=== PATIENT | female | born 1945 | race Caucasian/White ===

== ENCOUNTER 2016-05-27 12:21 | Emergency (ER) | payer MEDICARE ==
[2016-05-27 13:24] LABS: BASOPHIL# 0.1 X 10^3uL (0.0-0.1); BASOPHILS 0.7 % (0.0-2.0); EOSINOPHILS 3.4 % (0.0-6.0); EOSINOPHILS# 0.3 X 10^3uL (0.0-0.4); HEMATOCRIT 38.3 % (36.0-48.0); HEMOGLOBIN 13.2 g/dL (12.0-16.0); LYMPHOCYTES 18.9 % (20.0-40.0); LYMPHOCYTES# 1.5 X 10^3uL (0.8-3.8); MEAN CELL VOLUME 91.2 fL (80.0-100.0); MEAN CORPUS. HGB CONCENTRATION 34.6 g/dL (32.0-36.0); MEAN CORPUSCULAR HEMOGLOBIN 31.5 pg (29.0-35.0); MEAN PLATELET VOLUME 7.4 fL (7.4-10.4); MONOCYTES 6.1 % (2.0-10.0); MONOCYTES# 0.5 X 10^3uL (0.2-1.0); NEUTROPHILS 70.9 % (54.0-75.0); NEUTROPHILS# 5.3 X 10^3uL (2.6-6.7); PLATELET COUNT 328 X 10^3uL (130-440); RED CELL DISTRIBUTION WIDTH 13.1 % (11.5-14.5); WHITE BLOOD COUNT 7.7 X 10^3uL (3.9-10.7)
[2016-05-27 13:38] LABS: TROPONIN I < 0.012 ng/mL (0.00-0.034)
--- NOTE | 2016-05-27 14:13 | ER PHYSICIAN DOCUMENTATION ---
Physician Documentation [facility] Name:Lin Senior Age:71 yrs Sex:Female :1945 Arrival Date:05/27/2016 Time:12:21 Bed4 Private MD:Wilbert Abarca ED, Chris Disposition: 05/27 14:01 Critical Care: not applicable. cd 14:20 Chart complete. cd Disposition: 05/27/16 14:02 Discharged to Home/Self Care. Impression: Chest Wall Strain. - Condition is Good. - Discharge Instructions: CHEST WALL STRAIN. - Prescriptions for Robaxin 500 mg Oral - take 1 tablet by ORAL route every 6 hours As needed; 40 tablet. - Medical Reconciliation form form. - Follow up: Wilbert Abarca MD; When: 1 week; Reason: Recheck today's complaints, Continuance of care. - Problem is an ongoing problem. - Symptoms are unchanged. HPI: 12:25 This 71 yrs old Female presents to ER via Private Vehicle with complaints of cd pain in chest wall, chronic...causing SOB. 12:25 The patient has shortness of breath with light activity, that occurred at home, and the cd patient has a history of Lung Cancer, treated and in remission. Also has a hx of Serratus Muscle strain and scarring from breast implants. PT has been working with her. She states she now has CARDENAS due to the pain in her chest wall. She denies anterior substernal chest pain, cough, fever, chills, sputum production or hemoptysis.. Onset: The symptom(s)/episode began/occurred acutely, yesterday. Duration: The symptoms are continuous. Associated signs and symptoms: Pertinent positives: chest pain, Pertinent negatives: productive cough, diaphoresis, dizziness, fever, hemoptysis, nausea, vomiting. Severity of symptoms: At their worst the symptoms were moderate in the emergency department the symptoms have improved mildly. Risk Factors The risk factors for pulmonary embolism include: This patient has a history of a prior pulmonary embolism. The patient has experienced similar episodes in the past. Historical: - Allergies: cyclobenzaprine HCl; Tetanus-Diphtheria Toxoids-Td; - Home Meds: 1. Neurontin Oral 2. Combivent Inhl 3. Ventolin HFA inhl Nebulizer 4. Azithromycin Oral 5. Acyclovir Oral 6. Tessalon Perles Oral 7. bivespi 8. meloxicam oral 9. DuoNeb Inhl 10. Zoloft Oral 11. Methocarbamol Oral 12. Trazodone Oral - PMHx: pseudophakia; breast CA; hypoxia; chronic chest wall pain; PANCREATITIS; DIVERTICULITIS; RAD; ASTHMA; ANXIETY; DEPRESSION; HIGH CHOLESTEROL; PE; SBO; RSV; - PSHx: CHOLECYSECTOMY; SBO repair; RIght upper and middle lobes removed; - Tetanus: allergy. - Ebola Screening: : Patient negative for fever greater than or equal to 101.5 degrees Fahrenheit, and additional compatible Ebola Virus Disease symptoms. Patient denies exposure to infectious person. Patient denies travel to an Ebola-affected area in the 21 days before illness onset. No symptoms or risks identified at this time. . - Immunization history: Pneumococcal vaccine is up to date, Flu Vaccine < 1 year. - Social history: Smoking status: Patient states former smoker of tobacco. ROS: 13:06 ENT: Negative for injury, pain, epistaxis and discharge. cd Neck: Negative for injury, pain, stiffness and swelling. Back: Negative for injury, pain or muscle spasms. MS/Extremity: Negative for injury, deformity, edema, calf tenderness, pain or coldness. Skin: Negative for injury, rash, itching and discoloration. 13:06 Neuro: Negative for headache, weakness, numbness, tingling, and seizure. cd 13:06 Constitutional: Negative for chills, fever, poor PO intake. 13:06 Cardiovascular: Positive for chest pain, with movement, Negative for edema, orthopnea, palpitations, paroxysmal nocturnal dyspnea. 13:06 Respiratory: Positive for dyspnea on exertion, Negative for cough, hemoptysis, orthopnea, shortness of breath, sputum production, wheezing. 13:06 Abdomen/GI: Negative for abdominal pain, nausea, vomiting. 13:06 All other systems are negative. Exam: Head/Face: Normocephalic, atraumatic. Eyes: Pupils equal round and reactive to light, extra-ocular motions intact. Lids and lashes normal. Conjunctiva and sclera are non-icteric and not injected. Cornea within normal limits. Periorbital areas with no swelling, redness, or edema. ENT: Nares patent. No nasal discharge, no septal abnormalities noted. Tympanic membranes are normal and external auditory canals are clear. Oropharynx with no redness, swelling, or masses, exudates, or evidence of obstruction, uvula midline. Mucous membranes moist. Neck: Trachea midline, no thyromegaly or masses palpated, and no cervical lymphadenopathy. Supple, full range of motion without nuchal rigidity, or vertebral point tenderness. No Meningismus. Back: No spinal tenderness. No costovertebral tenderness. Full range of motion. Skin: Warm, dry with normal turgor. Normal color with no rashes, no lesions, and no evidence of cellulitis. MS/ Extremity: Pulses equal, no cyanosis. Neurovascular intact. Full, normal range of motion. 13:06 Neuro: Awake and alert, GCS 15, oriented to person, place, time, and situation. cd Cranial nerves II-XII grossly intact. Motor strength 5/5 in all extremities. Sensory grossly intact. Cerebellar exam normal. Normal gait. 13:06 Constitutional: The patient appears alert, awake, non-diaphoretic, non-toxic, well developed, well nourished, in obvious distress, mildly distressed. 13:06 Chest/axilla: Inspection: normal, no acute changes, Palpation: tenderness, that is moderate, of the anterior aspect of right upper chest and right breast, that totally reproduces the patient's complaints. 13:06 Cardiovascular: Rate: normal, Rhythm: regular, Pulses: no pulse deficits are appreciated, Heart sounds: normal, Edema: is not appreciated. 13:06 Respiratory: the patient does not display signs of respiratory distress, Respirations: normal, no acute changes, Breath sounds: are normal, clear throughout. 13:06 Abdomen/GI: Inspection: abdomen appears normal, Bowel sounds: normal, Palpation: abdomen is soft and non-tender. Vital Signs: 12:25 BP 152 / 79; Pulse 63; Resp 18; Temp 98.4(O); Pulse Ox 91% on R/A; Weight 59.87 kg (R); tg Height 5 ft. 5 in. (165.10 cm) (R); Pain 4/10; 13:50 BP 139 / 77; Pulse 60; Pulse Ox 91% on R/A; ma 12:25 Body Mass Index 21.97 (59.87 kg, 165.10 cm) tg MDM: 12:27 Patient medically screened. 12:30 Data interpreted: Pulse oximetry: on room air is 91 %. Interpretation: normal. cd 13:06 Differential diagnosis: Myocardial Infarction pneumonia, Pneumothorax Psychogenic cd Pulmonary Embolism Chest Wall Pain limiting deep breathing. Antibiotic administration: Not indicated, the patient does not have an appreciated infiltrate. 14:00 Data reviewed: vital signs, nurses notes, old medical records, lab test result(s), EKG, cd radiologic studies, plain films, and as a result, I will discharge patient. 14:10 Counseling: I had a detailed discussion with the patient and/or guardian regarding: the cd historical points, exam findings, and any diagnostic results supporting the discharge/admit diagnosis, lab results, radiology results, the need for outpatient follow up, for a recheck, with the patient's primary care provider, to return to the emergency department if symptoms worsen or persist or if there are any questions or concerns that arise at home. 14:20 ECG: ECG:. Physician consultation: Wilbert Abarca MD was called at 14:15, was contacted cd at 14:15, regarding consult, patient's condition, outpatient follow-up, next week. 05/27 13:38 Order name: TROPONIN I; Complete Time: 13:58 EDMS 05/27 13:57 Interpretation: Normal. 05/27 13:40 Order name: CBC AUTO DIF, MDIF/RMOR IF IND; Complete Time: 13:58 EDMS 05/27 13:57 Interpretation: Normal. cd 05/27 13:48 Order name: DDIMER; Complete Time: 13:58 EDMS 05/27 13:58 Interpretation: Normal Except: Mildly Elevated. but less than 10 times the patient's cd age. 05/27 13:16 Order name: CXR 2V [id number]; Complete Time: 13:32 EDMS 05/27 13:32 Interpretation: Abnormal: No acute change from previous X-Ray. 05/27 12:58 Order name: EKG - 12 Lead; Complete Time: 13:04 05/28 13:42 Interpretation: Normal. cd EC:02 Rate is 58 beats/min. Rhythm is regular. QRS [place] is Normal. NH interval is normal. QRS cd interval is normal. QT interval is normal. No Q waves. T waves are Normal. No ST changes noted. Clinical impression: Normal ECG and No evidence of ischemia. Interpreted by me. Dispensed Medications: No medications were administered Signatures: Angel Garcia RN RN tg Galdino Johnson MD MD cd
--- NOTE | 2016-05-27 14:13 | ER NURSING DOCUMENTATION ---
Nurse's Notes [facility] Name:Lin Senior Age:71 yrs Sex:Female :1945 Arrival Date:05/27/2016 Time:12:21 Bed4 Private MD:Wilbert bAarca Diagnosis:Chest Wall Strain Presentation: 05/27 12:24 Acuity: LD 2 tg 12:45 Presenting complaint: Patient states: Pt has increased pain in her right ribs from tg coughing. Hx of lung CA on the right. Transition of care: patient was not received from another setting of care. 12:45 Method Of Arrival: Private Vehicle tg Triage Assessment: 12:25 General: Appears in no apparent distress, Behavior is cooperative. Pain: Complains of tg pain in Right lateral/anterior lower rib area. Neuro: Level of Consciousness is awake, alert. Cardiovascular: Capillary refill < 3 seconds. Respiratory: Airway is patent Respiratory effort is even, unlabored, Reports shortness of breath cough that is pain with cough. Derm: Skin is pink, warm & dry. Historical: - Allergies: cyclobenzaprine HCl; Tetanus-Diphtheria Toxoids-Td; - Home Meds: 1. Neurontin Oral 2. Combivent Inhl 3. Ventolin HFA inhl Nebulizer 4. Azithromycin Oral 5. Acyclovir Oral 6. Tessalon Perles Oral 7. bivespi 8. meloxicam oral 9. DuoNeb Inhl 10. Zoloft Oral 11. Methocarbamol Oral 12. Trazodone Oral - PMHx: pseudophakia; breast CA; hypoxia; chronic chest wall pain; PANCREATITIS; DIVERTICULITIS; RAD; ASTHMA; ANXIETY; DEPRESSION; HIGH CHOLESTEROL; PE; SBO; RSV; - PSHx: CHOLECYSECTOMY; SBO repair; RIght upper and middle lobes removed; - Tetanus: allergy. - Ebola Screening: : Patient negative for fever greater than or equal to 101.5 degrees Fahrenheit, and additional compatible Ebola Virus Disease symptoms. Patient denies exposure to infectious person. Patient denies travel to an Ebola-affected area in the 21 days before illness onset. No symptoms or risks identified at this time. . - Immunization history: Pneumococcal vaccine is up to date, Flu Vaccine < 1 year. - Social history: Smoking status: Patient states former smoker of tobacco. Screenin:21 Infectious Disease Risk Unable to Obtain. Abuse screen: Denies threats or abuse. Denies tg injuries from another. Nutritional screening: No deficits noted. Assessment: 13:22 Cardiovascular: Rhythm is sinus rhythm. tg Vital Signs: 12:25 BP 152 / 79; Pulse 63; Resp 18; Temp 98.4(O); Pulse Ox 91% on R/A; Weight 59.87 kg (R); tg Height 5 ft. 5 in. (165.10 cm) (R); Pain 4/10; 13:50 BP 139 / 77; Pulse 60; Pulse Ox 91% on R/A; ma 12:25 Body Mass Index 21.97 (59.87 kg, 165.10 cm) tg ED Course: 12:22 Patient arrived in ED. ds 12:22 Wilbert Abarca MD is Private Physician. ds 12:24 Triage completed. tg 12:26 Galdino Johnson MD is Attending Physician. cd 12:45 Angel Garcia RN is Primary Nurse. tg 13:01 Patient moved to radiology. ms 13:01 Arm band placed on. tg 13:01 EKG done. (by ED staff). ma 13:16 Patient moved back from radiology. ms 13:21 Valuables Remains with patient Patient has correct armband on for positive tg identification. Placed in gown. Bed in low position. Side rails up X 1. 14:01 Wilbert Abarca MD is Referral Physician. cd Administered Medications: No medications were administered Outcome: 14:02 Discharge ordered by MD. cd 14:12 Discharged to home ambulatory. tg 14:12 Condition: unchanged 14:12 Discharge Assessment: Patient awake, alert and oriented x 3. No cognitive and/or functional deficits noted. Patient verbalized understanding of disposition instructions. 14:12 Instructed on discharge instructions, follow up and referral plans. medication usage, Prescriptions given X 1. 14:12 Patient left the ED. tg Signatures: Angel Garcia RN RN tg Abuso, Melanie, RN RN ma Srot, Elsie, Robi Reg ds Galdino Johnson MD MD cd Miguelina Huitron ms
--- NOTE | 2016-05-27 15:32 | RADIOLOGY REPORT ---
Two views of the chest are compared with prior films dated 03/14/2016. There has been no appreciable change. Stable scarring is seen in the right upper lung field. The lung martinez are otherwise clear. No infiltrate, fluid or pneumothorax is seen. The heart and vessels are stable. IMPRESSION: Stable right upper lung field scarring. MTDD
== END 2016-05-27 14:13 | disposition home or self-care (01) ==
LOC: ER 12:21
DX: S23.41XA Sprain of ribs, initial encounter (principal); X50.0XXA Overexertion from strenuous movement or load, initial encounter; R05 Cough; R06.00 Dyspnea, unspecified; Z85.3 Personal history of malignant neoplasm of breast; J45.909 Unspecified asthma, uncomplicated; Z79.899 Other long term (current) drug therapy
CPT/HCPCS: 36415; 71020; 84484; 85025; 85379; 93005; 93010; 99283; 99284